=== PATIENT | male | born 1950 | race Caucasian/White ===

== ENCOUNTER 2016-09-14 06:39 | Day surgery (SDC) | payer MEDICARE, BC ==
[2016-09-14] MEDS ORDERED: Lactated Ringers 1,000 ML IV SCH (06:45)
[2016-09-14] MEDS ORDERED: Propofol 200 MG/20 ML SDV IV ONE (08:00)
--- NOTE | 2016-09-14 08:26 | PCM.OPNOTE ---
- General Post-Op/Procedure Note Date of Surgery/Procedure: 09/14/16 Operative Procedure(s): c scope Findings: inter hemorrhoids Pre Op Diagnosis: hematochezia Post-Op Diagnosis: inter hemorrhoids Anesthesia Technique: REINA Primary Surgeon: Ganga Hopper Anesthesia Provider: Prasad Flynn Complications: None Condition: Good Free Text/Narrative:: see dictation
[2016-09-14 09:23] VITALS: BP 121/68
--- NOTE | 2016-09-14 12:35 | OR ---
DATE OF OPERATION: 09/14/2016 SURGEON: Ganga Hopper MD PROCEDURE PERFORMED: Colonoscopy. PREOPERATIVE DIAGNOSIS: Hematochezia. POSTOPERATIVE DIAGNOSIS: Internal hemorrhoids. INDICATIONS FOR PROCEDURE: This is a 66-year-old white male, who is referred with the above-mentioned of hematochezia. He was offered and accepted a C- scope. DESCRIPTION OF PROCEDURE: After an excellent IV sedation was administered, digital rectal exam was performed. No marked abnormality was noted. Flexible colonoscope was inserted and advanced to the cecum without difficulty. The prep was excellent. The following findings were noted: Ascending colon, unremarkable. Transverse colon, unremarkable. Descending colon, unremarkable. Sigmoid, unremarkable. Rectum and anus; on retroflexing the scope, there was evidence of internal hemorrhoids which appears to be the cause of his bleeding. The colon was deflated, scope was removed. The patient tolerated the procedure well, and was taken to recovery in good condition. /[id number] DALTON/JANNETTE
== END 2016-09-14 09:20 | disposition home or self-care (01) ==
LOC: FB.SDS 06:39
PROVIDERS: ATTEND Surgery
DX: K92.1 Melena (principal); K64.8 Other hemorrhoids; R19.4 Change in bowel habit; H52.209 Unspecified astigmatism, unspecified eye; H52.00 Hypermetropia, unspecified eye; H52.4 Presbyopia; Z88.0 Allergy status to penicillin; Z98.890 Other specified postprocedural states; Z87.891 Personal history of nicotine dependence
CPT/HCPCS: 00810; 45378; J2704; J7120